=== PATIENT | female | born 1955 | race Caucasian/White ===

== ENCOUNTER 2019-07-29 21:24 | Emergency (ER) | payer OTHER ==
[~2019-07-29] VITALS: Ht 162.6 cm; Wt 72.6 kg
[2019-07-29 22:08] LABS: BASOPHILS ABSOLUTE AUTO 0.05 K/mm3 (0.00-0.23); BASOPHILS PERCENT AUTO 1 % (0-2); EOSINOPHILS ABSOLUTE AUTO 0.11 K/mm3 (0.00-0.68); EOSINOPHILS PERCENT AUTO 1 % (0-6); Hematocrit 43.8 % (33.0-51.0); IMMATURE GRAN ABSOLUTE AUTO 0.03 K/mm3 (0.00-0.10); IMMATURE GRAN PERCENT AUTO 0 % (0-1); LYMPHOCYTES ABSOLUTE AUTO 1.35 K/mm3 (0.84-5.20); LYMPHOCYTES PERCENT AUTO 16 % (21-46); MONOCYTES ABSOLUTE AUTO 0.56 K/mm3 (0.16-1.47); MONOCYTES PERCENT AUTO 6 % (4-13); Mean Corpuscular HGB 31.3 pg (26.0-34.0); Mean Corpuscular HGB Conc 34.2 g/dL (31.5-36.5); Mean Corpuscular Volume 91 fL (80-100); NEUTROPHILS PERCENT AUTO 76 % (41-73); Platelet Count 181 K/mm3 (150-400); RDW Coefficient Variation 12.7 % (11.7-14.2); RDW Standard Deviation 42.7 fL (35.1-46.3)
[2019-07-29 22:27] LABS: Alanine Aminotransfer (ALT/SGP 696 U/L (12-78); Albumin, Blood 4.2 g/dL (3.4-5.0); Albumin/Globulin Ratio 1.4 (0.8-1.8); Alk Phos 301 U/L (50-136); Anion Gap 8 mmol/L (6-16); Aspartate Aminotrans (AST/SGOT 496 U/L (12-37); Blood Urea Nitrogen 14 mg/dL (8-24); Bun/Creatinine Ratio 19.2 (12.0-20.0); CO2, Blood 24 mmol/L (21-32); Calcium, Blood 9.5 mg/dL (8.5-10.1); Chloride, Blood 107 mmol/L (98-108); Creatinine, Blood 0.73 mg/dL (0.40-1.00); Globulin, Blood 3.1 g/dL (2.2-4.0); Glomerular Filtration Rate >60 (60-); Glucose, Blood 106 mg/dL (70-99); Potassium, Blood 4.1 mmol/L (3.5-5.5); Sodium, Blood 139 mmol/L (136-145); Total Protein, Blood 7.3 g/dL (6.4-8.2)
== END 2019-07-30 03:08 | disposition short-term general hospital (02) ==
LOC: ER 21:24
PROVIDERS: Emergency Medicine
DX: K85.10 Biliary acute pancreatitis without necrosis or infection (principal); K80.70 Calculus of gallbladder and bile duct without cholecystitis without obstruction; Z88.8 Allergy status to other drugs, medicaments and biological substances
CPT/HCPCS: 36415; 76705; 80053; 83690; 85025; 96361; 96374; 96375; 96376; 99285-25; J0780; J1170; J2405; J3010; J7120

== ENCOUNTER → 2020-09-04 | Outpatient (CLI) | payer OTHER | END | disposition home or self-care (01) | LOC: LAB 13:02 → LAB SHORT 13:02 | DX: N39.0 Urinary tract infection, site not specified (principal) | CPT/HCPCS: 87077; 87086; 87186 ==

== ENCOUNTER 2023-02-02 14:36 | Emergency (ER) | payer OTHER ==
[~2023-02-02] VITALS: Ht 160 cm; Wt 72.6 kg
== END 2023-02-02 15:34 | disposition home or self-care (01) ==
LOC: ER 14:36
DX: M25.531 Pain in right wrist (principal); Z88.8 Allergy status to other drugs, medicaments and biological substances
CPT/HCPCS: 93931; 99283-25

== ENCOUNTER → 2023-12-31 | Outpatient (CLI) | payer OTHER ==
[2023-12-31 15:26] LABS: Source, Urine Clean Catch
[2023-12-31 17:40] LABS: Appearance, Urine Clear (Clear); Bilirubin, Urine Neg (Neg); Blood, Urine 1+ (Neg); Color, Urine Yellow (P-Yellow); Glucose Qualitative, Urine Neg (Neg); Ketones, Urine Neg (Neg); Leukocyte Esterase, Urine 2+ (Neg); Nitrite, Urine Neg (Neg); Protein, Urine Neg (Neg); Urobilinogen, Urine NORM (Normal)
[2023-12-31 18:14] LABS: Bacteria Few /hpf; Red Blood Cells, Urine 0-2 /hpf (0-2); Squamous Epithelial Cells Few /hpf (Few); Transitional Epithelial Cells Rare /hpf (0-Rare); Yeast/Fungi Urine Few /hpf
== END | disposition home or self-care (01) ==
LOC: LAB SHORT 15:24 → LAB 15:24
PROVIDERS: Physician Assistant
DX: N32.81 Overactive bladder (principal); R35.1 Nocturia
CPT/HCPCS: 81001; 87077; 87086; 87186

== ENCOUNTER 2025-01-26 10:38 | Day surgery (SDC) | payer OTHER ==
[~2025-01-26] VITALS: Ht 162.6 cm; Wt 64.5 kg
[~2025-01-26 10:38] MED LIST: Lactated Ringer's 1,000 ML IV ONE
[2025-01-26] MEDS ORDERED: CeFAZolin Sodium 2,000 MG VIAL ONE (11:08)
[2025-01-26] MEDS ORDERED: ALDACTONE25 M1 PO (11:26)
[2025-01-26] MEDS ORDERED: MELO7.5 (11:27)
[2025-01-26] MEDS ORDERED: Lactated Ringer's 1,000 ML IV ONE (11:32)
[2025-01-26] MEDS ORDERED: Lidocaine HCl/Pf 1% 5 ML VIAL ONE (11:34)
[2025-01-26] MEDS ORDERED: Lidocaine HCl 2% 10 ML SDA ONE (11:41)
[2025-01-26] MEDS ORDERED: Bupivacaine 0.5% W/EPI 1:200000 SDV 30 ML Vial ONE (11:41)
[2025-01-26] MEDS ORDERED: propofoL 20 ML IV ONE (11:55)
[2025-01-26] MEDS ORDERED: Dexamethasone Sod Phos 10 MG/ML 1ML VIAL ONE (12:00)
[2025-01-26] MEDS ORDERED: Ondansetron HCl 2 MG / ML 2ML Vial ONE (12:00)
[2025-01-26] MEDS ORDERED: FentaNYL Citrate 50 MCG/ML 2 ML Injection ONE (12:00)
[2025-01-26 12:54] VITALS: BP 98/58
--- NOTE | 2025-01-26 12:54 | NUR ---
01/26/25 1254 Marisol Talamantes REPORT FROM SEAN RENDON. PT ARRIVES TO SDU A&OX4. DENIES PAIN/NAUSEA, VSS, ON RA. PT STATES READINESS TO GO HOME.
== END 2025-01-26 13:42 | disposition home or self-care (01) ==
LOC: ORSCSDS 10:38
PROVIDERS: Podiatrist Foot & Ankle Surgery
PROC: 0QBP0ZZ Excision of Left Metatarsal, Open Approach (ICD-10-PCS; principal; 2025-01-26 12:00)
DX: M21.622 Bunionette of left foot (principal); E78.5 Hyperlipidemia, unspecified; Z79.82 Long term (current) use of aspirin; Z79.899 Other long term (current) drug therapy
CPT/HCPCS: J0690; J1100; J2003; J2405; J2704; J3010; J7120